=== PATIENT | female | born 1960 | race African-American/Black ===

== ENCOUNTER → 2019-09-03 07:20 | Outpatient (CLI) | payer OTHER, SELFPAY ==
--- NOTE | ~2019-09-03 | MM_ITS ---
EXAMINATION: MM screening [facility] BI w deyanira HISTORY: Screening mammogram TECHNIQUE: Craniocaudal and mediolateral oblique 3-D tomosynthesis images were obtained and synthetic 2-D images were generated. CAD analysis was submitted and interpreted. COMPARISON: 08/29/2018, 08/25/2017, 07/05/2016 BREAST PARENCHYMAL COMPOSITION: There are scattered areas of fibroglandular density. FINDINGS: There is no evidence of suspicious mass, calcification, or architectural distortion to sugg est malignancy in either breast. There has been no suspicious interval change. IMPRESSION: 1. No mammographic evidence of malignancy. 2. Recommend routine screening mammography in one year. BI-RADS Category 1: Negative Reviewed, dictated and finalized at location A.
== END ==
PROVIDERS: PCP Emergency Medicine; Visit Provider Obstetrics & Gynecology
DX: Z12.31 Encounter for screening mammogram for malignant neoplasm of breast (principal)
CPT/HCPCS: 77063; 77067

== ENCOUNTER → 2020-09-03 10:12 | Outpatient (CLI) | payer OTHER, SELFPAY ==
--- NOTE | ~2020-09-03 | MM_ITS ---
EXAMINATION: MM screening [facility] BI w deyanira HISTORY: Screening mammogram TECHNIQUE: Craniocaudal and mediolateral oblique 3-D tomosynthesis images were obtained and synthetic 2-D images were generated. CAD analysis was submitted and interpreted. COMPARISON: 09/03/2019, 11/2018, 08/25/2017 bilateral digital screening mammogram examinations BREAST PARENCHYMAL COMPOSITION: There are scattered areas of fibroglandular density. FINDINGS: There is no evidence of suspicious mass, calcification, or architectural distortion to sugg est malignancy in either breast. There has been no suspicious interval change. IMPRESSION: 1. No mammographic evidence of malignancy. 2. Recommend routine screening mammography in one year. BI-RADS Category 1: Negative Reviewed, dictated and finalized at location A. 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
--- NOTE | ~2020-09-03 | DEXA_ITS ---
Bone Density Report Name: Emilia Bender Age: 60 Sex: Female Ethnicity: White Date of : 1960 Indication: postmenopausal; screening for osteoporosis; Referring Provider: ALEXANDRE MUÑOZ Study: Bone densitometry was performed. Exam Date: September 03, 2020 Accession number: [id number] Bone Density: Region BMD T-score Z-score Classification AP Spine (L1-L4) 1.043 0.0 1.2 Normal Femoral Neck (Left) 0.761 -0.8 0.4 Normal Total Hip (Left) 0.893 -0.4 0.4 Normal Femoral Neck (Right) 0.719 -1.2 0.0 Osteopenia Total Hip (Right) 0.821 -1.0 -0.2 Normal Total Hip Mean 0.857 -0.7 0.1 Normal World Health Organization criteria for BMD impression classify patients as: Normal (T-score at or above -1.0), Osteopenia (T-score between -1.0 and -2.5), or Osteoporosis (T-score at or below -2.5). 10-year Fracture Risk(1): Major Osteoporotic Fracture 6.8% Hip Fracture 0.4% Reported Risk Factors: [place] (), Neck BMD=0.719, BMI=28.4 (1) FRAX(R) Version 3.08. Fracture probability calculated for an untreated patient. Fracture probability may be lower if the patient has received treatment. Previous Exams: Region Exam Age BMD T-score BMD Change BMD Change Date g/cm2 vs Baseline vs Previous AP Spine(L1-L4) 09/03/2020 60 1.043 0.0 0.023 0.023 07/06/2015 54 1.020 -0.2 Total Hip(Left) 09/03/2020 60 0.893 -0.4 0.013 0.013 07/06/2015 54 0.880 -0.5 Total Hip(Right) 09/03/2020 60 0.821 -1.0 -0.041* -0.041* 07/06/2015 54 0.862 -0.7 *Denotes significance at 95% confidence level, LSC for AP Spine = 0.022 g/cm2, LSC for Total Hip = 0.027 g/cm2 Clinical Information Provided by Patient: Has used the following medications: Vitamin D Patient maximum height was 63 Menopause Age: 52 Drinks caffeinated beverages Onset of menses at age 17 Number of children 2 Impression: The patient has low bone mass, based on the Right Femoral Neck T-score. The patient has an estimated ten-year risk of hip fracture of 0.4% and an estimated ten-year risk of major fracture of 6.8%, based on the WHO FRAX algorithm. The BMD for the Total Hip(Right) decreased, changing by -0.041 since the last DXA exam. Discussion: BONE DENSITY IS LOW AT ONE OR MORE SKELETAL SITES. This patient's lowest T-score is low at one or more skeletal sites. It meets the World Health Organization's (WHO) criteria for ?low bone mass?
== END ==
PROVIDERS: Visit Provider Obstetrics & Gynecology
DX: Z12.31 Encounter for screening mammogram for malignant neoplasm of breast (principal); Z13.820 Encounter for screening for osteoporosis; M85.851 Other specified disorders of bone density and structure, right thigh
CPT/HCPCS: 77063; 77067; 77080

== ENCOUNTER → 2021-03-10 15:59 | Outpatient (CLI) | payer OTHER, SELFPAY ==
--- NOTE | ~2021-03-10 | XR_ITS ---
XR hand RT 2V DATE: 03/10/2021 16:14 INDICATION: Right hand pain TECHNIQUE: AP and lateral views COMPARISON: None FINDINGS: No fracture or dislocation, periosteal reaction or bone destruction, erosive change or chun drocalcinosis. Joint spaces are preserved. IMPRESSION: Negative Reviewed, dictated and finalized at location A. IMPRESSION: Negative
== END ==
PROVIDERS: PCP Emergency Medicine; Visit Provider Emergency Medicine
DX: M25.542 Pain in joints of left hand (principal)
CPT/HCPCS: 73120

== ENCOUNTER 2021-08-13 11:23 | Emergency (ER) | payer OTHER, SELFPAY ==
--- NOTE | ~2021-08-13 | XR_ITS ---
EXAMINATION: XR knee LT 3V, XR knee RT 3V DATE: 08/13/2021 12:13 INDICATION: Bilateral knee pain TECHNIQUE: 1. Anteroposterior, sunrise and crosstable lateral views of the left knee were obtained 2. Anteroposterior, sunrise and crosstable lateral views of the left knee were obtained COMPARISON: None. FINDINGS: Alignment is normal at both knees. No fracture. Space appear normal on nonweightbearing imaging. Tin y marginal osteophytes at the bilateral patellofemoral compartments. Small bilateral knee joint effus ions, left larger than right. No layering lipohemarthrosis. Soft tissues are unremarkable. IMPRESSION: 1. Mild bilateral patellofemoral osteoarthritis. No acute osseous abnormality. 2. Small bilateral knee joint effusions, left greater than right. Reviewed, dictated and finalized at location A. FACTURING ASSOCIATE IMPRESSION: 1. Mild bilateral patellofemoral osteoarthritis. No acute osseous abnormality. 2. Small bilateral knee joint effusions, left greater than right.
[2021-08-13 11:33] VITALS: BP 130/88; PULSE 80; RESP 16; TEMP 37.2; O2SAT 99
--- NOTE | 2021-08-13 11:46 | ED.LOWEXIN ---
HPI - Extremity Injury (Lower) General Chief Complaint: Extremity Problem,Nontraumatic Stated Complaint: vanessa knee pain Time Seen by Provider: 08/13/21 11:46 Source: patient, RN notes reviewed and old records reviewed Mode of arrival: ambulatory Limitations: no limitations History of Present Illness HPI Narrative: 61-year-old female presents to the [facility] with bilateral knee pain since yesterday. Reports that she works for the [employer] for 30 years. No treatment prior to arrival. Pain with walking. Feels clicking in the left knee more than the right. Denies any trauma Related Data Home Medications Medication Instructions Recorded Confirmed escitalopram oxalate [Lexapro] 10 mg PO DAILY 08/13/21 08/13/21 norethindrone ac-eth estradiol 1 tablet PO DAILY 08/13/21 08/13/21 [Fyavolv] Allergies Allergy/AdvReac Type Severity Reaction Status Date / Time Penicillins Allergy Unknown unknown Verified 08/13/21 11:34 Review of Systems Review of Systems: All systems reviewed & are unremarkable except as noted in HPI and below Constitutional: Constitutional: Reports no additional constitutional complaints Eyes: Eyes: Reports no additional eye complaints ENT: Reports system reviewed and no additional complaints, except as documented Respiratory: Respiratory: Reports no additional respiratory complaints Musculoskeletal: Musculoskeletal: Reports as per HPI, Reports arthralgias (Bilateral knees) and Reports joint swelling (Bilateral knees) Integumentary/Breasts: Skin/Breast: Reports system reviewed and no additional complaints, except as docu Neurologic: Reports system reviewed and no additional complaints, except as documented Psychiatric: Psychiatric: Reports no additional psychiatric complaints Allergic/Immunologic: Allergic/Immunologic: Reports no additional allergic/immunologic complaints [facility] Past Medical History Medical History (Updated 08/13/21 @ 12:29 by Nubia Arthur) Acute recurrent frontal sinusitis Body mass index [BMI] 28.0-28.9, adult (04/08/16) Body mass index [BMI] 29.0-29.9, adult (09/28/17) Calcified lymph nodes Depression Elevated cholesterol Fatigue Major depressive disorder, single episode, unspecified Obesity, unspecified (07/24/15) Pain in right shoulder Screening cholesterol level Family History Family History Mother Hypertension Family history of arthritis Other Diabetes mellitus Social History Social History Social History: Patient does not drink caffeine. Smoking status: Never smoker Second hand tobacco smoke exposure: No Alcohol intake: never Substance use: never Substance use type: does not use Additional living arrangements comments: Patient is Gender identity (if verbalized by the patient): Female Sexual Orientation (if Verbalized by the Patient): Straight or Heterosexual Comments At the time of my signature, I reviewed and agree with the nursing past medical, surgical, social, and family history. There is no relevant family history pertinent to the patient complaint. Exam Const: General: healthy appearing, alert and acute distress mild (Pain) Nutritional Appearance: well nourished and obese Orientation/consciousness: patient oriented x3 Limitations: no limitations HENMT: Head: normal to inspection Eyes: Pupils: Equal, round and reactive pupils present Neck: Neck: normal visual inspection, no lymphadenopathy and no meningeal signs Chest: Chest palpation & inspection: normal inspection of the chest Resp: Effort & Inspection: normal respiratory effort Cardio: Rate: regular rate Rhythm: regular rhythm Skin: General skin exam: normal color Wounds: no wounds Neuro: General: patient oriented x3, moves all extremities, no meningeal signs and no focal motor deficits Speech: normal speech Gait exam (Neuro): Normal gait present
== END 2021-08-13 12:30 | disposition home or self-care (01) ==
PROVIDERS: Emergency Provider Nurse Practitioner; PCP Emergency Medicine
DX: M17.0 Bilateral primary osteoarthritis of knee (principal); E78.00 Pure hypercholesterolemia, unspecified; F32.9 Major depressive disorder, single episode, unspecified; E66.9 Obesity, unspecified; Z68.28 Body mass index [BMI] 28.0-28.9, adult
CPT/HCPCS: 73562; 99214; G0463

== ENCOUNTER 2021-09-07 15:58 | Outpatient (RCR) | payer OTHER, SELFPAY ==
--- NOTE | 2021-08-30 14:47 | PCPTNOTE ---
Patient did not show up for scheduled appointment this date. Pt called after her scheduled anointment time and stated she forgot. She is going to be rescheduled.
--- NOTE | 2021-09-07 16:54 | PTOPEVAL ---
PHYSICAL THERAPY EVALUATION and PLAN OF CARE Thank you for referring Emilia Bender to [facility].? Emilia is to perform an INDEPENDENT HEP and will call for follow-up in the next month if she needs. Please review, sign, date and return this plan of care IRVING. I agree with and certify that the following plan of care is medically necessary. Referring Physician Date Attending Provider: Israel Lomas MD Evaluation Outpatient Past Medical History Musculoskeletal History Hx Fractures Yes: rt arm Hx Orthopedic Surgery Yes: right rotator cuff repair Psychosocial History Hx Anxiety Yes Diagnosis bilateral knee pain Onset 1 year Subjective Information has been experiencing Query Text:As Reported By Patient/ bilateral knee pain for about Family a year. X-rays show OA with osteophytes and effusion in bilateral knees, L>R. States that she is limited in stair climbing. Limits getting on and off the floor and avoids lifting heavy things and she feels pressure on the knees in these activities. patient states she would prefer to have a home exercise program and a follow-up appointment as needed. She states she is very active and does isael and senior stretching classes. Self Report Pain Assessment Bilateral Knee(s) Reported Pain Level 6 Pain Description Aching,Tightness Pain Frequency Chronic,Continuous Lowest Pain Intensity 3 Greatest Pain Intensity 8 Pain Aggravating Factors Walking,Weight Bearing/ Standing Pain Score Pain Score 6: Self Report Interventions Used Interventions Used By Clinicians Exercise Lower Extremity Range of Motion General Lower Extremity Range of Motion Reason Not Measured WFL/Left,WFL/Right Lower Extremity Muscle Strength Testing Hip Strength Right Hip Flexion Strength 4 Good Hip Extension Strength 4+ Good + Hip Abduction Strength 4 Good Hip Adduction Strength 4 Good Left Hip Flexion Strength 4+ Good + Hip Extension Strength 5 Normal Hip Abduction Strength 3+ Fair + Hip Adduction Strength 4- Good - Knee Strength Right Knee Flexion Strength 3+ Fair + Knee Extension Strength 3+ Fair + Left Knee Flexion Strength 4- Good
--- NOTE | 2021-10-05 09:31 | PCPTNOTE ---
PHYSICAL THERAPY DISCHARGE NOTE Attending Provider: Israel Lomas MD Patient:Emilia Bender Date of :1960 Emilia participated in a physical therapy evaluation on 09/07/21 for bilateral knee pain. She was provided with an Independent HEP and she stated she would call within a month if she needed further care. Emilia has not communicated with us; therefore she will be discharged at this time. Thank you for referring this patient to [facility]. Please review, sign, date and return this discharge summary IRVING. I have been updated about the patient's current status and I agree with discharge from the above service at this time. Referring Physician Date
== END 2021-10-06 11:01 | disposition home or self-care (01) ==
LOC: ANHPT 15:58
PROVIDERS: PCP Emergency Medicine; Visit Provider Emergency Medicine
DX: M17.0 Bilateral primary osteoarthritis of knee (principal); M25.461 Effusion, right knee; M25.462 Effusion, left knee
CPT/HCPCS: 97110; 97161

== ENCOUNTER → 2021-09-16 13:09 | Outpatient (CLI) | payer OTHER, SELFPAY ==
--- NOTE | ~2021-09-16 | MM_ITS ---
EXAMINATION: MM screening [facility] BI w deyanira HISTORY: Screening mammogram TECHNIQUE: Craniocaudal and mediolateral oblique 3-D tomosynthesis images were obtained and synthetic 2-D images were generated. CAD analysis was submitted and interpreted. COMPARISON: 09/03/2020, 09/03/2019, 08/29/2018 bilateral screening mammogram examinations BREAST PARENCHYMAL COMPOSITION: There are scattered areas of fibroglandular density. FINDINGS: There is no evidence of suspicious mass, calcification, or architectural distortion to sugg est malignancy in either breast. There has been no suspicious interval change. IMPRESSION: 1. No mammographic evidence of malignancy. 2. Recommend routine screening mammography in one year. BI-RADS Category 1: Negative Reviewed, dictated and finalized at location A.
== END ==
PROVIDERS: PCP Emergency Medicine; Visit Provider Obstetrics & Gynecology
DX: Z12.31 Encounter for screening mammogram for malignant neoplasm of breast (principal)
CPT/HCPCS: 77063; 77067

== ENCOUNTER 2022-02-27 14:03 | Outpatient (CLI) | payer OTHER, SELFPAY ==
--- NOTE | ~2022-02-27 | XR_ITS ---
EXAM: XR_CERV2-3V_CR DATE: 02/27/2022 14:32 HISTORY: CHRONIC PAIN OF BOTH HIPS, DDD . COMPARISON: None available. FINDINGS: Craniocervical association and atlantoaxial joint are normal. No prevertebral soft tissue swelling. Focal reversal of the cervical lordosis centered at C3-4. Moderate disc space narrowing at C4-5 and C5-6. Significant marginal osteophytosis at C4-5. Multilevel facet sclerosis and hypertrophy . IMPRESSION: Moderate-severe degenerative disc disease at C4-C5 and C5-6. Multilevel facet arthropathy . Reviewed, dictated and finalized at location K. IMPRESSION: Moderate-severe degenerative disc disease at C4-C5 and C5-6. Multil evel facet arthropathy.
--- NOTE | ~2022-02-27 | XR_ITS ---
EXAM: XR hip BI 2V w AP pelvis DATE: 02/27/2022 14:32 HISTORY: CHRONIC PAIN OF BOTH HIPS . COMPARISON: None available. FINDINGS: Normal mineralization. No fracture or dislocation. No lytic or blastic lesion. Mild degene rative change in the lower lumbar spine. Mild superior joint space narrowing in the hips bilaterally. Mild osteitis pubis. No erosion or periosteal change. Pelvic phleboliths. IMPRESSION: Mild bilateral hip osteoarthritis. Osteitis pubis. Reviewed, dictated and finalized at location K.
== END 2022-02-27 14:04 | disposition home or self-care (01) ==
DX: M50.322 Other cervical disc degeneration at C5-C6 level (principal); M16.0 Bilateral primary osteoarthritis of hip
CPT/HCPCS: 72040; 73521

== ENCOUNTER 2022-05-12 18:51 | Emergency (ER) | payer OTHER, SELFPAY ==
--- NOTE | 2022-05-12 18:56 | ED.WOUNDLAC ---
HPI - Wound/Laceration General Chief Complaint: Wound/Laceration Stated Complaint: Left Hand Finger Laceration Time Seen by Provider: 05/12/22 18:56 Source: patient Mode of arrival: ambulatory Limitations: no limitations History of Present Illness HPI narrative: Ms. Bender is a 61-year-old female patient presenting to clinic today with complaints of finger laceration to the left index finger. She reports she cut it around 2:00 a.m. this afternoon. She states that will quit bleeding. She cut it with a knife. Tetanus is up-to-date per patient Related Data Home Medications Medication Instructions Recorded Confirmed No Home Medications 05/12/22 05/12/22 Allergies Allergy/AdvReac Type Severity Reaction Status Date / Time Penicillins Allergy Mild Hives Verified 05/12/22 19:02 Review of Systems Review of Systems: Pertinent positives per HPI. Patient denies any fever, chills, rash, headache, visual changes, dizziness, cough, runny nose, sore throat, shortness of breath, chest pain, palpitations, nausea, vomiting, diarrhea, constipation, abdominal pain, or any urinary issues. [facility] Past Medical History Medical History Acute recurrent frontal sinusitis Anxiety Arthritis Body mass index [BMI] 28.0-28.9, adult (04/08/16) Body mass index [BMI] 29.0-29.9, adult (09/28/17) Calcified lymph nodes Depression Elevated cholesterol Fatigue Major depressive disorder, single episode, unspecified Obesity, unspecified (07/24/15) Pain in right shoulder Screening cholesterol level Surgical History Surgical History History of classical section History of dilation and curettage S/P rotator cuff surgery Family History Family History Mother Hypertension Family history of arthritis Other Diabetes mellitus Social History Social History Social History: Patient does not drink caffeine. Smoking status: Never smoker Second hand tobacco smoke exposure: No Alcohol intake: never Substance use: never Substance use type: does not use Additional living arrangements comments: Patient is Gender identity (if verbalized by the patient): Female Sexual Orientation (if Verbalized by the Patient): Straight or Heterosexual Comments At the time of my signature, I reviewed and agree with the nursing past medical, surgical, social, and family history. There is no relevant family history pertinent to the patient complaint. Exam Narrative: General: Well-developed, well nourished, in no apparent distress Head: Normocephalic, atraumatic. Cardio: Regular rate and rhythm, s1 and s2 normal, no murmur appreciated. Resp: Clear to auscultation bilaterally, no rhonchi, rales, wheezing or rubs. Integumentary: [place], warm, and dry, intact without lesion, skin avulsion laceration involving the nail to the left medial index finger that is bleeding. Areas approximately 1 cm across by 0.5 cm wide Course Course Emergency Course: Portions of this record may have been created with voice recognition software. Level of Care: Express Care Visit Vital Signs Vital signs: Vital Signs Temperature 36.9 C 05/12/22 19:08 Pulse Rate 88 05/12/22 19:08 Respiratory Rate 16 05/12/22 19:08 Blood Pressure 149/98 H 05/12/22 19:08 Pulse Oximetry 100 05/12/22 19:08 Oxygen Delivery Room Air 05/12/22 19:08 Temperature 36.9 C 05/12/22 19:18 Pulse Rate 88 05/12/22 19:18 Respiratory Rate 16 05/12/22 19:18 Blood Pressure 149/98 H 05/12/22 19:18 Pulse Oximetry 100 05/12/22 19:18 Oxygen Delivery Room Air 05/12/22 19:18 Vital signs reviewed Procedures Laceration Laceration 1: Date: 05/12/22 Site: hand ( left index finger) Mark
[2022-05-12 19:08] VITALS: BP 149/98; PULSE 88; RESP 16; TEMP 36.9; O2SAT 100
[2022-05-12 19:18] VITALS: BP 149/98; PULSE 88; RESP 16; TEMP 36.9; O2SAT 100
== END 2022-05-12 19:49 | disposition home or self-care (01) ==
LOC: EXPCOLL 18:57
PROVIDERS: Emergency Provider Nurse Practitioner Family
DX: S61.201A Unspecified open wound of left index finger without damage to nail, initial encounter (principal); W26.0XXA Contact with knife, initial encounter; M19.90 Unspecified osteoarthritis, unspecified site; E78.00 Pure hypercholesterolemia, unspecified; E66.9 Obesity, unspecified; Z68.27 Body mass index [BMI] 27.0-27.9, adult
CPT/HCPCS: 99212; G0463

== ENCOUNTER → 2023-01-05 13:03 | Outpatient (CLI) | payer OTHER, SELFPAY ==
--- NOTE | ~2023-01-05 | MM_ITS ---
EXAMINATION: MM screening [facility] BI w dyeanira HISTORY: Screening mammogram TECHNIQUE: Craniocaudal and mediolateral oblique 3-D tomosynthesis images were obtained and synthetic 2-D images were generated. CAD analysis was submitted and interpreted. COMPARISON: 09/12/2021, 09/03/2020, 09/03/1999 bilateral screening mammogram examinations BREAST PARENCHYMAL COMPOSITION: There are scattered areas of fibroglandular density. FINDINGS: There is no evidence of suspicious mass, calcification, or architectural distortion to sugg est malignancy in either breast. There has been no suspicious interval change. IMPRESSION: 1. No mammographic evidence of malignancy. 2. Recommend routine screening mammography in one year. BI-RADS Category 1: Negative Reviewed, dictated and finalized at location A.
--- NOTE | ~2023-01-05 | DEXA_ITS ---
Bone Density Report Name: JOURDAN QUINTANILLA Age: 62 Sex: Female Ethnicity: Black Date of : 1960 Indication: postmenopausal; screening for osteoporosis; height loss; Referring Provider: LOLA HI Study: Bone densitometry was performed. Exam Date: January 05, 2023 Accession number: [id number] Bone Density: Region BMD T-score Z-score Classification AP Spine (L1-L4) 0.999 -0.4 0.2 Normal Femoral Neck (Left) 0.721 -1.2 -0.6 Osteopenia Total Hip (Left) 0.832 -0.9 -0.5 Normal Femoral Neck (Right) 0.640 -1.9 -1.1 Osteopenia Total Hip (Right) 0.747 -1.6 -1.0 Osteopenia Total Hip Mean 0.790 -1.3 -0.8 Osteopenia World Health Organization criteria for BMD impression classify patients as: Normal (T-score at or above -1.0), Osteopenia (T-score between -1.0 and -2.5), or Osteoporosis (T-score at or below -2.5). 10-year Fracture Risk(1): Major Osteoporotic Fracture 8.9% Hip Fracture 1.0% Reported Risk Factors: [place] (), Neck BMD=0.640, BMI=28.3 (1) FRAX(R) Version 3.08. Fracture probability calculated for an untreated patient. Fracture probability may be lower if the patient has received treatment. Previous Exams: Region Exam Age BMD T-score BMD Change BMD Change Date g/cm2 vs Baseline vs Previous AP Spine(L1-L4) 01/05/2023 62 0.999 -0.4 -0.021 -0.044* 09/03/2020 60 1.043 0.0 0.023 0.023 07/06/2015 54 1.020 -0.2 Total Hip(Left) 01/05/2023 62 0.832 -0.9 -0.048* -0.061* 09/03/2020 60 0.893 -0.4 0.013 0.013 07/06/2015 54 0.880 -0.5 Total Hip(Right) 01/05/2023 62 0.747 -1.6 -0.115* -0.074* 09/03/2020 60 0.821 -1.0 -0.041* -0.041* 07/06/2015 54 0.862 -0.7 *Denotes significance at 95% confidence level, LSC for AP Spine = 0.022 g/cm2, LSC for Total Hip = 0.027 g/cm2 Clinical Information Provided by Patient: Has used the following medications: Vitamin D, MTV Patient maximum height was 63.0 Menopause Age: 52 Does not regularly consume dairy products Drinks caffeinated beverages Onset of menses at age 17 Number of children 2 Impression: The patient has low bone mass, based on the Right Femoral Neck T-score. The patient has an estimated ten-year risk of hip fracture of 1% and an estimated ten-year risk of major fracture of 8.9%, based on the WHO FRAX algorithm. The BMD for the AP Spine(L1-L4)
== END ==
PROVIDERS: Visit Provider Obstetrics & Gynecology
DX: Z12.31 Encounter for screening mammogram for malignant neoplasm of breast (principal); M85.80 Other specified disorders of bone density and structure, unspecified site; Z78.0 Asymptomatic menopausal state; M85.852 Other specified disorders of bone density and structure, left thigh; M85.851 Other specified disorders of bone density and structure, right thigh
CPT/HCPCS: 77063; 77067; 77080

== ENCOUNTER 2023-09-20 08:22 | Emergency (ER) | payer OTHER, SELFPAY ==
[2023-09-20 08:37] VITALS: BP 119/83; PULSE 98; RESP 16; TEMP 37.2; O2SAT 99
--- NOTE | 2023-09-20 08:49 | ED.URI ---
HPI - URI/Sore Throat General Chief Complaint: Upper Respiratory Infection Stated Complaint: Sore Throat Time Seen by Provider: 09/20/23 08:49 Source: patient Mode of arrival: ambulatory Limitations: no limitations History of Present Illness HPI Narrative: 63-year-old female presents with complaint sore throat for 3 days. Afebrile. No other symptoms. 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 All systems reviewed and negative except as noted above. Related Data Home Medications Medication Instructions Recorded Confirmed cholecalciferol (vitamin D3) 125 125 mcg PO DAILY 10/17/22 09/20/23 mcg (5,000 unit) capsule mecobalamin (vitamin B12) 500 mcg 500 mcg PO DAILY 10/17/22 09/20/23 chewable tablet multivitamin 1 tablet PO DAILY 10/17/22 09/20/23 omega 7-[id number]-eca-fish oil 1,000 mg 1 cap PO DAILY 10/17/22 09/20/23 (120 mg-180 mg) capsule (Fish Oil) estradiol 10 mcg vaginal tablet See Rx Instructions .Route .COMPLEX 09/20/23 09/20/23 (Vagifem) Allergies Allergy/AdvReac Type Severity Reaction Status Date / Time Penicillins Allergy Mild Hives Verified 09/20/23 08:33 Review of Systems Review of Systems: CONSTITUTIONAL: Denies fever, chills, or sweats. EYES: Denies visual changes, redness, or discharge. ENT: Denies rhinorrhea, congestion . Reports sore throat. Denies otalgia. CARDIOVASCULAR: Denies chest pain, palpitations, or edema. RESPIRATORY: Denies cough or dyspnea. GASTROINTESTINAL: Denies abdominal pain, nausea, vomiting, or diarrhea. GENITOURINARY: Denies dysuria or hematuria. SKIN: Denies rash or itching. MUSCULOSKELETAL: Denies back pain, joint pain, or myalgia. NEUROLOGIC: Denies headache, numbness, or weakness. PSYCHIATRIC: Denies anxiety or depression. All other systems reviewed are negative, except as documented in HPI. [facility] Past Medical History Medical History Acute recurrent frontal sinusitis Anxiety Arthritis Body mass index [BMI] 28.0-28.9, adult (04/08/16) Body mass index [BMI] 29.0-29.9, adult (09/28/17) Calcified lymph nodes Depression Elevated cholesterol Fatigue Major depressive disorder, single episode, unspecified Obesity, unspecified (07/24/15) Pain in right shoulder Screening cholesterol level Surgical History Surgical History History of classical section History of dilation and curettage S/P foot surgery S/P rotator cuff surgery Family History Family History Mother Hypertension Family history of arthritis Other Diabetes mellitus Social History Social History Social History: Patient does not drink caffeine. Smoking status: Former smoker Second hand tobacco smoke exposure: No Smoking end date: 06/26/99 Alcohol intake: never Substance use: never Substance use type: does not use Lack of Transportation: No Lack of Food: Never True Current Housing: I Have Housing Concerned About Future Housing: No Difficulty Paying Gas/Electric Bills: No Difficulty Paying for Meds: No Currently Unemployed: No Education: Associate Degree Difficulty w/ Childcare or Family Care: No Living arrangements: with family Additional living arrangements comments: Patient is Occupation/Education: retired Gender identity (if verbalized by the patient): Female Sexual Orientation (if Verbalized by the Patient): Straight or Heterosexual Comments At time of signature, agree with nursing past medical, surgical, social and family history. There is no relevant family history pertinent to the presenting complaint. Exam Narrative: GENERAL: This is a well-nourished, well-developed patient, in no apparent distress. HEAD: normocephalic, atraumatic. EYES
== END 2023-09-20 09:00 | disposition home or self-care (01) ==
PROVIDERS: Emergency Provider Nurse Practitioner Family
DX: J02.9 Acute pharyngitis, unspecified (principal); Z87.891 Personal history of nicotine dependence; M19.90 Unspecified osteoarthritis, unspecified site; E78.00 Pure hypercholesterolemia, unspecified; E66.9 Obesity, unspecified; Z68.25 Body mass index [BMI] 25.0-25.9, adult
CPT/HCPCS: 87081; 87880; 99213; G0463

== ENCOUNTER 2024-03-18 14:09 | Outpatient (CLI) | payer OTHER, SELFPAY ==
--- NOTE | ~2024-03-18 | MM_ITS ---
EXAMINATION: MM screening bennett BI w deyanira HISTORY: Screening TECHNIQUE: Craniocaudal and mediolateral oblique 3-D tomosynthesis images were obtained and synthetic 2-D images were generated. CAD analysis was submitted and interpreted. COMPARISON: Comparison to multiple prior studies sequentially, with oldest reviewed study dated 07/2017. BREAST PARENCHYMAL COMPOSITION: Not dense: There are scattered areas of fibroglandular density. FINDINGS: There is no evidence of suspicious mass, calcification, or architectural distortion to sugg est malignancy in either breast. There has been no suspicious interval change. IMPRESSION: 1. No mammographic evidence of malignancy. 2. Recommend routine screening mammography in one year. BI-RADS Category 1: Negative Reviewed, dictated and finalized at location B.
== END 2024-03-18 14:10 | disposition home or self-care (01) ==
LOC: MICIMG 14:09
PROVIDERS: PCP Obstetrics & Gynecology; Visit Provider Obstetrics & Gynecology
DX: Z12.31 Encounter for screening mammogram for malignant neoplasm of breast (principal)
CPT/HCPCS: 77063; 77067

== ENCOUNTER 2025-03-20 12:20 | Outpatient (CLI) | payer OTHER, SELFPAY ==
--- NOTE | ~2025-03-20 | MM_ITS ---
EXAMINATION: MM screening bennett BI w deyanira HISTORY: Screening TECHNIQUE: Craniocaudal and mediolateral oblique 3-D tomosynthesis images were obtained and synthetic 2-D images were generated. CAD analysis was submitted and interpreted. COMPARISON: Comparison to multiple prior studies sequentially, with oldest reviewed study dated , 09/03/2019 BREAST PARENCHYMAL COMPOSITION: There are scattered areas of fibroglandular density. FINDINGS: There is no evidence of suspicious mass, calcification, or architectural distortion to suggest malignancy in either breast. IMPRESSION: 1. No mammographic evidence of malignancy. 2. Recommend routine screening mammography in one year. BI-RADS Category 1: Negative Reviewed, dictated and finalized at location B.
--- NOTE | ~2025-03-20 | DEXA_ITS ---
Bone Density Report Name: JOURDAN QUINTANILLA Age: 64 Sex: Female Ethnicity: Black Date of : 1960 Indication: osteopenia; height loss; Referring Provider: LOLA HI Study: Bone densitometry was performed. Exam Date: April 11, 2025 Accession number: [id number] Bone Density: Region BMD T-score Z-score Classification AP Spine(L1-L4) 0.936 -1.0 -0.2 Normal Femoral Neck (Left) 0.655 -1.7 -0.9 Osteopenia Total Hip (Left) 0.779 -1.3 -0.7 Osteopenia Femoral Neck (Right) 0.620 -2.1 -1.2 Osteopenia Total Hip (Right) 0.717 -1.8 -1.1 Osteopenia Total Hip Mean 0.748 -1.6 -0.9 Osteopenia World Health Organization criteria for BMD impression classify patients as: Normal (T-score at or above -1.0), Osteopenia (T-score between -1.0 and -2.5), or Osteoporosis (T-score at or below -2.5). 10-year Fracture Risk(1): Major Osteoporotic Fracture 4.6% Hip Fracture 0.6% Reported Risk Factors: [place] (Black), Neck BMD=0.620, BMI=27.6 (1) FRAX(R) Version 3.08. Fracture probability calculated for an untreated patient. Fracture probability may be lower if the patient has received treatment. Previous Exams: -- Region Exam Age BMD T-score BMD Change BMD Change Date g/cm2 vs Baseline vs Previous -- AP Spine (L1-L4) 04/11/2025 64 0.936 -1.0 -8.3%* -6.3%* 01/05/2023 62 0.999 -0.4 -2.1% -4.2%* 09/03/2020 60 1.043 0.0 2.2% 2.2% 07/06/2015 54 1.020 -0.2 Total Hip(Left) 04/11/2025 64 0.779 -1.3 -11.5%* -6.4%* 01/05/2023 62 0.832 -0.9 -5.5%* -6.9%* 09/03/2020 60 0.893 -0.4 1.5% 1.5% 07/06/2015 54 0.880 -0.5 Total Hip(Right) 04/11/2025 64 0.717 -1.8 -16.9%* -4.0%* 01/05/2023 62 0.747 -1.6 -13.4%* -9.1%* 09/03/2020 60 0.821 -1.0 -4.7%* -4.7%* 07/06/2015 54 0.862 -0.7 -- *Denotes significance at 95% confidence level, LSC for AP Spine = 0.022 g/cm2, LSC for Total Hip = 0.027 g/cm2 Clinical Information Provided by Patient: Has used the following medications: Calcium Patient maximum height was 63 Menopause Age: 52 No regular weight bearing exercise Does not regularly consume dairy products Drinks caffeinated beverages Onset of menses at age 15 Number of children 2 Impression: The patient has low bone mass, based on the Right Femoral Neck T-score. The patient has an estimated ten-year risk of hip fracture of 0.6% and an estimated ten-year risk of major fracture of 4.6%, based on the WHO FRAX algorithm. The BMD for the AP Spine (L1-L4) decreased, changing by -6.3% since the last DXA exam. The BMD for the Total Hip(Left) decreased, changing by -6.4% since the last DXA exam. The BMD for the Total Hip(Right) decreased, changing by -4.0% since the last DXA exam. Discussion: BONE DENSITY IS LOW AT ONE OR MORE SKELETAL SITES. This patient's lowest T-score is low at one or more skeletal sites. It meets the World Health Organization's (WHO) criteria for ?low bone mass? (T-score between -1.0 and -2.5). The patient's 10-year risk of fracture as calculated by FRAX is less than the threshold where pharmacological therapy is recommended by the National Osteoporosis Foundation (NOF). However, all treatment decisions require clinical judgment and consideration of individual patient factors, including patient preferences, comorbidities, previous drug use, risk factors not captured in the FRAX model (e.g., frailty, falls, vitamin D deficiency, increased bone turnover, interval significant decline in bone density) and possible under or overestimation of fracture risk by FRAX. The patient should follow a healthful lifestyle (good nutrition with adequate calcium and vitamin D, and appropriate weight-bearing exercise). Follow-Up: Consider repeating this study in 2 years to reassess this patient's status, or sooner if there is some new clinical indication. Reported by: RAFAEL on 04/11/2025 10:11:00 AM. Reviewed, dictated and finalized at location A.
== END 2025-03-20 12:21 | disposition home or self-care (01) ==
LOC: MICIMG 12:21
PROVIDERS: PCP Obstetrics & Gynecology; Visit Provider Obstetrics & Gynecology
DX: Z12.31 Encounter for screening mammogram for malignant neoplasm of breast (principal)
CPT/HCPCS: 77063; 77067

== ENCOUNTER 2025-04-23 08:10 | Emergency (ER) | payer OTHER, SELFPAY ==
[2025-04-23 08:25] VITALS: BP 127/81; PULSE 92; RESP 20; TEMP 36.7; O2SAT 100
[2025-04-23 08:40] LABS: EDSTREPNEGPOS1 Negative (Negative)
[2025-04-23 08:43] LABS: EDCOVIDSCREEN Negative (Negative)
--- NOTE | 2025-04-23 08:43 | ED_ITS ---
HPI - URI/Sore Throat General Chief Complaint: Upper Respiratory Infection Stated Complaint: sore throat Time Seen by Provider: 04/23/25 08:31 Source: patient and RN notes reviewed Mode of arrival: ambulatory Limitations: no limitations History of Present Illness HPI Narrative: 64-year-old female patient presents today with a 4 day history of sore throat, nasal congestion and sinus pressure, fatigue, headache, chills. Denies fever, shortness of breath. She had a negative home COVID test 2 days ago. She has tried Tylenol, ibuprofen, Afrin, Sudafed, and Aleve with mild short-term relief. No history of asthma or COPD. Related Data Home Medications ?Medication ?Instructions ?Recorded ?Confirmed ?Last Taken ?Type No Home Medications 04/23/25 04/23/25 U nknown History Allergies Allergy/AdvReac Type Severity Reaction Status Date / Time Penicillins Allergy Mild Hives Verified 04/23/25 08:29 [facility] Past Medical History Medical History Arthritis Anxiety Acute recurrent frontal sinusitis Body mass index [BMI] 28.0-28.9, adult (04/08/16) Body mass index [BMI] 29.0-29.9, adult (09/28/17) Calcified lymph nodes Elevated cholesterol Fatigue Major depressive disorder, single episode, unspecified Obesity, unspecified (07/24/15) Pain in right shoulder Depression Screening cholesterol level Surgical History Surgical History H/O abdominoplasty S/P foot surgery S/P rotator cuff surgery History of dilation and curettage History of classical section Family History Family History Mother Hypertension Family history of arthritis Other Diabetes mellitus Social History Social History Social History: Patient does not drink caffeine. Smoking status: Former smoker Second hand tobacco smoke exposure: No Smoking end date: 06/26/99 Alcohol intake: never Substance use: never Substance use type: does not use Lack of Transportation: No Lack of Food: Never True Current Housing: I Have Housing Concerned About Future Housing: No Difficulty Paying Gas/Electric Bills: No Difficulty Paying for Meds: No Currently Unemployed: No Education: Associate Degree Difficulty w/ Childcare or Family Care: No Living arrangements: with family Additional living arrangements comments: Patient is Occupation/Education: retired Gender identity (if verbalized by the patient): Female Sexual Orientation (if Verbalized by the Patient): Straight or Heterosexual Comments At time of signature, I have reviewed and agree with nursing past medical, surgical, social and family history unless otherwise noted. Please see nursing chart for further information. There is no relevant family history pertinent to the presenting complaint Exam Narrative: GENERAL: Mildly ill-appearing, well-nourished, and in no acute distress. HEAD: Normocephalic, atraumatic. EYES: EOMI. No redness or drainage. Conjunctivae normal. ENT: Mucous membranes pink and moist. Nares congested. No rhinorrhea. TMs normal bilaterally. Throat erythematous and mildly edematous. Small amount of exudate on the left. Uvula midline. NECK: Normal AROM. Supple. No lymphadenopathy. CHEST: No respiratory distress. Clear to auscultation. HEART: Regular rate and rhythm. No murmur appreciated. EXTREMITIES: Normal range of motion. No edema. SKIN: Warm, dry, no rash. Capillary refill normal. Normal skin turgor. NEURO: No focal deficits. Alert and oriented x3. Gait steady. PSYCH: Normal affect. No signs of depression or anxiety. Course Course Level of Care: Express Care Visit Vital Signs Vital signs: Vital Signs Temperature 98.0 F 04/23/25 08:25 Pulse Rate 92 04/23/25 08:25 Respiratory Rate 20 04/23/25 08:25 Blood Pressure 127/81 04/23/25 08:25 Pulse Oximetry 100 04/23/25 08:25 Oxygen Delivery Room Air 04/23/25 08:25 Temperature 98.0 F 04/23/25 08:25 Pulse Rate 92 04/23/25 08:25 Respiratory Rate 20 04/23/25 08:25 Blood Pressure 127/81 04/23/25 08:25 Pulse Oximetry 100 04/23/25 08:25 Oxygen Delivery Room Air 04/23/25 08:25 Reviewed MDM - URI/Sore Throat MDM Narrative Medical decision making narrative: 64-year-old female patient presents today with a 4 day history of sore throat, nasal congestion and sinus pressure, fatigue, headache, chills. Denies fever, shortness of breath. She had a negative home COVID test 2 days ago. She has tried Tylenol, ibuprofen, Afrin, Sudafed, and Aleve with mild short-term relief. Upon exam, patient is mildly ill appearing with nasal congestion, erythematous and edematous pharynx with some mild exudate. Rapid strep, COVID, influenza negative. Strep culture pending. Symptoms likely viral in etiology. Discussed [id number] medication use and duration of illness. No prescription medications indicated at this time. Anticipatory guidance given. Vital signs stable. Differential Diagnosis Differential diagnosis: Likely upper respiratory infection, sinusitis, viral infection, influenza, pharyngitis and other (Strep throat, COVID-19) Lab Data Attestation: I reviewed the patient's lab results. Lab results narrative: Influenza negative, COVID negative Labs: Lab Results 04/23/25 Range/Units 08:38 POC Grp A Strep Screen Negative (Negative) Critical Care Time Critical Care Time Critical Care Time: No Discharge Plan Discharge Clinical Impression: Upper respiratory infection Qualifiers: URI type: unspecified URI Qualified Code(s): J06.9 - Acute upper respiratory infection, unspecified Patient Disposition: Home Condition: Stable Instructions: Upper Respiratory Infection (DC) Additional Instructions: Your COVID-19, influenza, and rapid strep swabs were negative today at [facility]. You will be notified in a few days if the culture comes back positive for strep, and appropriate antibiotics will be called in for you at that time. Your symptoms are likely due to a viral illness, which is not treated with antibiotics. Viral symptoms can be present for up to 7-10 days. Take Tylenol or ibuprofen for fever or pain. You may try some saline nasal spray to help thin out your nasal secretions. You may also consider some Flonase to help with your sinus pressure. Rest and stay hydrated. Follow up with your PCP in 7 days if symptoms are not improving. Go to the ER immediately if you have any difficulty breathing or swallowing. Patient Language: Danish Prescriptions: No Action No Home Medications Follow-up/Referrals: Raymond,Sylwia [Other] Time of Disposition: 08:49
[2025-04-23 08:44] LABS: EDINFLUASCREEN Negative (Negative); EDINFLUBSCREEN Negative (Negative)
== END 2025-04-23 08:58 | disposition home or self-care (01) ==
PROVIDERS: Emergency Provider Nurse Practitioner
DX: J02.0 Streptococcal pharyngitis (principal); Z20.822 Contact with and (suspected) exposure to COVID-19; E78.00 Pure hypercholesterolemia, unspecified; E66.9 Obesity, unspecified; Z68.25 Body mass index [BMI] 25.0-25.9, adult; M19.90 Unspecified osteoarthritis, unspecified site; Z87.891 Personal history of nicotine dependence
CPT/HCPCS: 87081; 87426; 87804; 87880; 99213; G0463